=== PATIENT | male | born 1960 | race Caucasian/White ===

== ENCOUNTER 2017-08-18 14:55 | Emergency (ER) | payer SELFPAY ==
[~2017-08-18 14:55] MED LIST: JANUMET PO; [UNRECOGNIZED DRUG - SUPPLY] PO
[2017-08-18 14:58] VITALS: BP 137/69; PULSE 91; RESP 16; TEMP 97.8; O2SAT 98
[2017-08-18] MEDS ORDERED: DULA10IN SQ (15:12)
[2017-08-18] MEDS ORDERED: VALS1TAB65 PO (15:12)
[2017-08-18] MEDS ORDERED: CANA1TAB2 PO (15:12)
[2017-08-18] MEDS ORDERED: ATOR10TA15 PO (15:12)
--- NOTE | 2017-08-18 17:02 | PD ---
HPI Chief Complaint: Laceration/Skin Injury Time Seen by Provider: 15:06 Travel History International Travel<30 days: No Contact w/Intl Traveler<30days: No Traveled to known affect area: No History of Present Illness HPI 57-year-old male here with laceration to the left hand. Patient has 2 lacerations near the third and fifth MCP joint. He reports that he cut the hand with a knife attempting to open a box he has full range of motion normal sensation of the hand. Tetanus immunization is up-to-date [facility] Past Medical History Hx Anticoagulant Therapy: Yes (BABY ASA DAILY) Cancer: No Cardiovascular Problems: Yes (HTN, chol) High Cholesterol: Yes Diabetes: Yes Patient Takes Glucophage: No Glaucoma: No Hepatitis: No Hiatal Hernia: No Hypertension: Yes Thyroid Disease: No Tetanus Vaccination: < 5 Years Influenza Vaccination: Yes Past Surgical History Abdominal Surgery: No Cardiac Surgery: Yes (HEART CATH 2008) Ear Surgery: No Endocrine Surgery: No Eye Surgery: No Genitourinary Surgery: No Gynecologic Surgery: No Oral Surgery: No Pacemaker: No Thoracic Surgery: No Other Surgery: Yes (hernia ) Social History Alcohol Use: No Tobacco Use: No Substance Use: No Allergies-Medications (Allergen,Severity, Reaction): Coded Allergies: No Known Allergies (Verified Adverse Reaction, Unknown, 08/18/17) NONE Reported Meds & Prescriptions Reported Meds & Active Scripts Active Reported Valsartan 160 Mg Tab 160 Mg PO DAILY Invokamet (Canagliflozin-Metformin) 50-1,000 Mg Tab 1 Tab PO DAILY Take with meals. Avoid ethanol. Trulicity Inj (Dulaglutide Inj) 0.75 Mg/0.5 Ml Pen 0.75 Mg SQ Q7D Atorvastatin (Atorvastatin Calcium) 10 Mg Tab 10 Mg PO HS Review of Systems General / Constitutional: No: Fever Eyes: No: Visual changes HENT: No: Headaches Cardiovascular: No: Chest Pain or Discomfort Respiratory: No: Shortness of Breath Gastrointestinal: No: Abdominal Pain Genitourinary: No: Dysuria Physical Exam Narrative GENERAL: Alert and well-appearing 57-year-old male SKIN: Warm and dry. HEAD: Normocephalic. EYES: No scleral icterus. No injection or drainage. NECK: Supple, trachea midline. CARDIOVASCULAR: Regular rate and rhythm without murmurs, gallops, or rubs. RESPIRATORY: Breath sounds equal bilaterally. No accessory muscle use. GASTROINTESTINAL: Abdomen soft, non-tender, nondistended. MUSCULOSKELETAL: No cyanosis, or edema. Left hand: 2 lacerations measuring 1 cm each near the fourth and fifth MCP joint. No joint involvement. Patient is able to flex and extend the fingers against resistance. Normal sensation with sharp/dull discrimination. Distally. Brisk cap refill. BACK: Nontender without obvious deformity. No CVA tenderness. Data Data Last Documented VS Vital Signs Date Time Temp Pulse Resp B/P (MAP) Pulse Ox O2 Delivery O2 Flow Rate FiO2 08/18/17 14:58 97.8 91 16 137/69 (91) 98 MDM Medical Decision Making Medical Screen Exam Complete: Yes Emergency Medical Condition: Yes Differential Diagnosis Hand laceration, tendon injury, ligamental injury Narrative Course 57-year-old male here with 2 lacerations to the left hand. No tendon or vascular injury identified. Laceration repair performed. Patient tolerated procedure well. Procedures Procedure Narrative LACERATION LOCATION: Left hand LENGTH: 1 cm each NUMBER OF STITCHES/KYMBERLY: 6 total REPAIR: The area of the laceration was prepped with Betadine and sterilely draped. The laceration was infiltrated with 1% lidocaine. The wound was copiously irrigated and explored without evidence of foreign body, tendon injury or neurovascular injury. The wound was closed using 4-0 Ethilon. This was a single layer repair. A sterile dressing was applied. The patient was advised to keep the dressing clean and dry. Patient tolerated the procedure well. Diagnosis Primary Impression: Hand laceration Qualified Codes: S61.412A - Laceration without foreign body of left hand, initial encounter Referrals: Primary Care Physician Additional Instructions: Do not submerge the wound in water. Sutures need to be removed in 7-10 days. Return if you develop signs or symptoms of infection Disposition: 01 DISCHARGE HOME Condition: Stable Lizette Razo Aug 18, 2017 17:02
== END 2017-08-18 17:21 | disposition home or self-care (01) ==
LOC: PHEFT 14:55
DX: S61.412A Laceration without foreign body of left hand, initial encounter (principal); I10 Essential (primary) hypertension; E78.00 Pure hypercholesterolemia, unspecified; E11.9 Type 2 diabetes mellitus without complications; W26.0XXA Contact with knife, initial encounter
CPT/HCPCS: 12001